=== PATIENT | female | born 1970 | race Caucasian/White ===

== ENCOUNTER 2018-09-25 17:09 | Emergency (ER) | payer OTHER ==
[~2018-09-25] VITALS: Ht 167.6 cm; Wt 63.0 kg
[~2018-09-25 17:09] MED LIST: AZEL137S4 NAS; CEPH-375 PO; CHOL5000 PO; LISI1TAB5 PO; OMEGA 3 KRILL OIL PO; PLEXUS BIOCLEANSE PO
[2018-09-25] MEDS ORDERED: LORazepam 1MG TABLET ONE (17:59)
[2018-09-25] MEDS ORDERED: LORazepam 1MG TABLET PO ONE (18:00)
[2018-09-25 18:03] LABS: BASOPHILS # (AUTO) 0.08 x10^3/uL (0-0.1); BASOPHILS % (AUTO) 1 % (0-1); EOSINOPHILS # (AUTO) 0.09 x10^3/uL (0-0.4); EOSINOPHILS % (AUTO) 1 % (1-7); LYMPHOCYTES # (AUTO) 1.87 x10^3/uL (1-3.4); LYMPHOCYTES % (AUTO) 31 % (22-44); MD NO; MEAN CORPUSCULAR HEMOGLOBIN 32.7 pg (27.0-34.8); MEAN CORPUSCULAR HGB CONC 34.6 g/dL (32.4-35.8); MEAN CORPUSCULAR VOLUME 94.6 fL (80-100); MEAN PLATELET VOLUME 8.2 fL (7.4-10.4); MONOCYTES % (AUTO) 11 % (2-9); NEUTROPHILS # (AUTO) 3.39 x10^3/uL (1.8-6.8); NEUTROPHILS % (AUTO) 55 % (42-75); PLATELET COUNT 276 x10^3/uL (130-400); RED BLOOD COUNT 4.74 x10^6/uL (3.82-5.3); RED CELL DISTRIBUTION WIDTH 13.5 % (9.6-15.2)
[2018-09-25 18:06] LABS: ALANINE AMINOTRANSFERASE 77 U/L (12-78); ALBUMIN 3.6 g/dL (3.4-5.0); ANION GAP 11 mmol/L (5-15); CALCIUM 8.8 mg/dL (8.5-10.1); CHLORIDE 109 mmol/L (98-107); CREATININE 0.76 mg/dL (0.55-1.02)
--- NOTE | 2018-09-25 18:06 | NUR ---
curtain worker at bedside for consult
[2018-09-25 18:07] LABS: SALICYLATE LEVEL < 1.7 mg/dL (2.8-20.0)
--- NOTE | 2018-09-25 18:11 | NUR ---
Pt arrives to ED with family, pt states she has "a drinking problem" and needs help. Last drink approx 2 hours ago per pt and family, pt eyes red, tearful. Pt denies drug use. Pt denies SI, per family pt has made multiple statments about "wanting to just be with her dad" who is as well as statements about "not wanting to live anymore" family concerned for pts safety, MD aware, will telepsych when sober.
[2018-09-25 18:12] LABS: ALKALINE PHOSPHATASE 108 U/L (45-117); BILIRUBIN,TOTAL 0.2 mg/dL (0.2-1.0); TOTAL PROTEIN 7.3 g/dL (6.4-8.2)
[2018-09-25 18:16] LABS: ACETAMINOPHEN < 2 mcg/mL (10-30)
[2018-09-25 18:29] LABS: AMPHETAMINE SCREEN, URINE Negative (Negative); BARBITURATE SCREEN, URINE Negative (Negative); BENZODIAZEPINE SCREEN, URINE Negative (Negative); CANNABINOID SCREEN, URINE Positive (Negative); COCAINE SCREEN, URINE Negative (Negative); METHADONE SCREEN, URINE Negative (Negative); OPIATE SCREEN, URINE Negative (Negative)
--- NOTE | 2018-09-25 18:58 | NUR ---
Petty in contact with Behavioral health, pt in room with family, given meal tray. Denies needs at this time. remains in lobby, MT aware not to let back to room
[2018-09-25 19:22] VITALS: BP 130/80
--- NOTE | 2018-09-25 19:26 | NUR ---
PT BEING DISCHARGED WITH FAMILY AND WILL BE TAKEN TO [facility]. PAPERWORK FAXED TO [facility] PER DATABASE MANAGEMENT SPECIALIST.
== END 2018-09-25 19:28 | disposition home or self-care (01) ==
LOC: ED 18:30
DX: F10.129 Alcohol abuse with intoxication, unspecified (principal); F33.1 Major depressive disorder, recurrent, moderate; I10 Essential (primary) hypertension
CPT/HCPCS: 36415; 80053; 80307; 84703; 85025; 99283

== ENCOUNTER → 2020-07-22 | Outpatient (CLI) | payer OTHER ==
[~2020-07-22] MED LIST changes: +LISI1TAB39 PO; -LISI1TAB5 PO
== END | disposition home or self-care (01) ==
LOC: RAD 12:01
PROVIDERS: ATTEND Urology
DX: N20.0 Calculus of kidney (principal); N85.8 Other specified noninflammatory disorders of uterus; M51.37 Other intervertebral disc degeneration, lumbosacral region
CPT/HCPCS: 74176